=== PATIENT | female | born 1970 | race Caucasian/White ===

== ENCOUNTER 2017-12-11 16:28 | Inpatient (IN) | payer OTHER ==
[2017-12-11] MEDS: SOD CHLORIDE 0.9% 500 ML IV ×2 (16:52→17:49)
[2017-12-11] MEDS: METOCLOPRAMIDE 10 MG INJ IV (16:52)
[2017-12-11] MEDS: DIPHENHYDRAMINE 50 MG INJ IV (16:53)
[2017-12-11 18:20] LABS: ADD MAN DIFF? NO
[2017-12-11 18:27] LABS: WHITE BLOOD COUNT 9.1 10^3/ul (4.8-10.8)
[2017-12-11 18:27] LABS: BASOPHILS % 0.3 % (0.0-2.0); EOSINOPHILS # 0.2 10^3/ul (0.0-0.5); EOSINOPHILS % 2.3 % (0.0-7.0); HEMATOCRIT 42.8 % (37.0-47.0); HEMOGLOBIN 14.3 g/dl (12.0-16.0); LYMPHOCYTES # 2.3 10^3/ul (0.8-2.9); LYMPHOCYTES % 25.3 % (15.0-51.0); MEAN CORPUSCULAR HEMOGLOBIN 29.5 pg (29.0-33.0); MEAN CORPUSCULAR HGB CONC 33.4 g/dl (32.0-37.0); MEAN CORPUSCULAR VOLUME 88.4 fl (82.0-101.0); MONOCYTE # 0.6 10^3/ul (0.3-0.9); MONOCYTES % 6.8 % (0.0-11.0); NEUTROPHIL # 5.9 10^3/ul (1.6-7.5); NEUTROPHILS % 65.1 % (39.0-77.0); PLATELET COUNT 167 10^3/UL (140-415); RED BLOOD COUNT 4.84 10^6/ul (4.20-5.40); RED CELL DISTRIBUTION WIDTH 13.2 % (11.5-14.5)
[2017-12-11 18:45] LABS: ANION GAP 15 (8-16); BLOOD UREA NITROGEN 21 mg/dl (7-20); CALCIUM 9.1 mg/dl (8.4-10.2); CARBON DIOXIDE 25 mmol/L (21-31); CHLORIDE 105 mmol/L (97-110); CREATININE 0.68 mg/dl (0.44-1.00); GLUCOSE 126 mg/dl (70-220); POTASSIUM 4.1 mmol/L (3.5-5.1); SODIUM 141 mmol/L (135-144)
[2017-12-11 18:57] LABS: TROPONIN-I < 0.012 ng/ml (0.00-0.12)
[2017-12-11 20:24] LABS: ADD UMIC NO; UR ASCORBIC ACID NEGATIVE (NEGATIVE); UR BILIRUBIN (Dip) NEGATIVE (NEGATIVE); UR BLOOD (Dip) NEGATIVE (NEGATIVE); UR CLARITY CLEAR (CLEAR); UR COLOR YELLOW (YELLOW); UR GLUCOSE (Dip) NEGATIVE (NEGATIVE); UR KETONES (Dip) NEGATIVE (NEGATIVE); UR LEUKOCYTE ESTERASE (Dip) NEGATIVE Leu/ul (NEGATIVE); UR NITRITE (Dip) NEGATIVE (NEGATIVE); UR SPECIFIC GRAVITY (Dip) 1.017 (1.003-1.030); UR TOTAL PROTEIN (Dip) NEGATIVE (NEGATIVE); UR UROBILINOGEN (Dip) NEGATIVE (NEGATIVE)
[2017-12-11] MEDS: SUMATRIPTAN 25 MG TAB PO (21:52)
[2017-12-11] MEDS: ASPIRIN 81 MG TAB PO (21:54)
[2017-12-12] MEDS ORDERED: ALBUTEROL/IPRATROPIUM (NEB) 3 ML AMP HHN (05:30)
[2017-12-12] MEDS ORDERED: NACL 0.9% 3 ML SYG IV (05:30)
[2017-12-12] MEDS: ACETAMINOPHEN 325 MG TAB PO (06:41)
[2017-12-12 08:43] LABS: ADD MAN DIFF? NO
[2017-12-12 08:51] LABS: WHITE BLOOD COUNT 7.9 10^3/ul (4.8-10.8)
[2017-12-12 08:51] LABS: BASOPHILS % 0.3 % (0.0-2.0); EOSINOPHILS # 0.2 10^3/ul (0.0-0.5); EOSINOPHILS % 2.2 % (0.0-7.0); HEMATOCRIT 44.2 % (37.0-47.0); HEMOGLOBIN 14.8 g/dl (12.0-16.0); LYMPHOCYTES # 2.5 10^3/ul (0.8-2.9); LYMPHOCYTES % 31.3 % (15.0-51.0); MEAN CORPUSCULAR HEMOGLOBIN 29.4 pg (29.0-33.0); MEAN CORPUSCULAR HGB CONC 33.5 g/dl (32.0-37.0); MEAN CORPUSCULAR VOLUME 87.7 fl (82.0-101.0); MEAN PLATELET VOLUME 11.5 fl (7.4-10.4); MONOCYTE # 0.5 10^3/ul (0.3-0.9); MONOCYTES % 6.6 % (0.0-11.0); NEUTROPHIL # 4.7 10^3/ul (1.6-7.5); NEUTROPHILS % 59.3 % (39.0-77.0); PLATELET COUNT 157 10^3/UL (140-415); RED BLOOD COUNT 5.04 10^6/ul (4.20-5.40); RED CELL DISTRIBUTION WIDTH 13.4 % (11.5-14.5)
[2017-12-12 09:10] LABS: ALANINE AMINOTRANSFERASE 24 IU/L (13-69); ALBUMIN 3.8 g/dl (3.3-4.9); ALBUMIN/GLOBULIN RATIO 1.08; ALKALINE PHOSPHATASE 100 IU/L (42-121); ANION GAP 12 (8-16); ASPARTATE AMINO TRANSFERASE 15 IU/L (15-46); BILIRUBIN,INDIRECT 0.3 mg/dl (0-1.1); BILIRUBIN,TOTAL 0.3 mg/dl (0.2-1.3); BLOOD UREA NITROGEN 19 mg/dl (7-20); CALCIUM 9.3 mg/dl (8.4-10.2); CARBON DIOXIDE 30 mmol/L (21-31); CHLORIDE 105 mmol/L (97-110); CHOL/HDL RATIO 4.2 RATIO; CHOLESTEROL 199 mg/dl (100-200); CREATININE 0.75 mg/dl (0.44-1.00); GLUCOSE 115 mg/dl (70-220); HDL CHOLESTEROL 47 mg/dl (34-88); LDL CHOLESTEROL,CALCULATED 127 mg/dl; MAGNESIUM 2.3 mg/dl (1.7-2.5); POTASSIUM 4.2 mmol/L (3.5-5.1); SODIUM 143 mmol/L (135-144); TOTAL PROTEIN 7.3 g/dl (6.1-8.1); TRIGLYCERIDES 124 mg/dl (0-149)
[2017-12-12] MEDS: morphine 2 MG INJ IV ×3 (09:27→17:57)
[2017-12-12] MEDS: ASPIRIN 81 MG TAB PO (09:28)
[2017-12-12] MEDS: HEPARIN 5,000 UNIT/0.5 ML VIAL SC ×2 (09:35→20:34)
[2017-12-12 09:38] LABS: THYROID STIMULATING HORMONE 0.896 MIU/L (0.465-4.680)
[2017-12-12 09:49] LABS: HEMOGLOBIN A1C 5.5 % (0-5.9)
[2017-12-12] MEDS ORDERED: INDOMETHACIN 50 MG PO (12:00)
[2017-12-12] MEDS: LORAZEPAM 2 MG INJ IV (16:05)
[2017-12-12 19:58] LABS: AMPHETAMINE/METHAMPHETAMINE Negative (NEGATIVE); BARBITURATES Negative (NEGATIVE); BENZODIAZEPINES Negative (NEGATIVE); CANNABINOIDS Negative (NEGATIVE); COCAINE Negative (NEGATIVE); OPIATES Positive (NEGATIVE)
[2017-12-12] MEDS: INDOMETHACIN 50 MG PO (20:25)
[2017-12-12] MEDS: ATORVASTATIN 20 MG TAB PO (20:26)
[2017-12-13] MEDS: morphine 2 MG INJ IV ×5 (01:25→21:45)
[2017-12-13] MEDS: INDOMETHACIN 50 MG PO ×3 (08:27→20:12)
[2017-12-13] MEDS: ASPIRIN 81 MG TAB PO (08:27)
[2017-12-13] MEDS: HEPARIN 5,000 UNIT/0.5 ML VIAL SC ×2 (08:47→20:28)
[2017-12-13 09:19] LABS: ADD MAN DIFF? NO
[2017-12-13 09:24] LABS: BASOPHILS % 0.4 % (0.0-2.0); EOSINOPHILS # 0.2 10^3/ul (0.0-0.5); EOSINOPHILS % 2.3 % (0.0-7.0); HEMATOCRIT 45.4 % (37.0-47.0); HEMOGLOBIN 14.8 g/dl (12.0-16.0); LYMPHOCYTES # 2.6 10^3/ul (0.8-2.9); LYMPHOCYTES % 35.4 % (15.0-51.0); MEAN CORPUSCULAR HEMOGLOBIN 28.5 pg (29.0-33.0); MEAN CORPUSCULAR HGB CONC 32.6 g/dl (32.0-37.0); MEAN CORPUSCULAR VOLUME 87.5 fl (82.0-101.0); MEAN PLATELET VOLUME 11.7 fl (7.4-10.4); MONOCYTE # 0.5 10^3/ul (0.3-0.9); MONOCYTES % 6.7 % (0.0-11.0); NEUTROPHIL # 4.1 10^3/ul (1.6-7.5); NEUTROPHILS % 54.9 % (39.0-77.0); PLATELET COUNT 167 10^3/UL (140-415); RED BLOOD COUNT 5.19 10^6/ul (4.20-5.40); RED CELL DISTRIBUTION WIDTH 13.3 % (11.5-14.5)
[2017-12-13 09:24] LABS: WHITE BLOOD COUNT 7.5 10^3/ul (4.8-10.8)
[2017-12-13 09:44] LABS: ANION GAP 13 (8-16); BLOOD UREA NITROGEN 22 mg/dl (7-20); CALCIUM 9.3 mg/dl (8.4-10.2); CARBON DIOXIDE 32 mmol/L (21-31); CHLORIDE 103 mmol/L (97-110); CREATININE 0.93 mg/dl (0.44-1.00); GLUCOSE 101 mg/dl (70-220); MAGNESIUM 2.2 mg/dl (1.7-2.5); PHOSPHORUS 4.8 mg/dl (2.5-4.9); POTASSIUM 4.2 mmol/L (3.5-5.1); SODIUM 144 mmol/L (135-144)
[2017-12-13] MEDS: ATORVASTATIN 20 MG TAB PO (20:12)
[2017-12-14] MEDS: ASPIRIN 81 MG TAB PO (08:34)
[2017-12-14] MEDS: INDOMETHACIN 50 MG PO ×3 (08:35→21:31)
[2017-12-14] MEDS: HEPARIN 5,000 UNIT/0.5 ML VIAL SC ×2 (08:39→21:35)
[2017-12-14] MEDS: morphine 2 MG INJ IV ×3 (10:34→21:42)
[2017-12-14] MEDS ORDERED: ACET/BUTAL/CAFF TAB PO ×2 (14:00)
[2017-12-14] MEDS: ATORVASTATIN 20 MG TAB PO (21:31)
[2017-12-15] MEDS: INDOMETHACIN 50 MG PO ×3 (08:25→21:17)
[2017-12-15] MEDS: ASPIRIN 81 MG TAB PO (08:25)
[2017-12-15] MEDS: HEPARIN 5,000 UNIT/0.5 ML VIAL SC ×2 (08:27→21:20)
[2017-12-15] MEDS: morphine 2 MG INJ IV (08:55)
[2017-12-15] MEDS: ACET/BUTAL/CAFF TAB PO ×2 (14:05→18:13)
[2017-12-15] MEDS: ATORVASTATIN 20 MG TAB PO (21:16)
[2017-12-16] MEDS: ACET/BUTAL/CAFF TAB PO ×2 (00:34→08:38)
[2017-12-16] MEDS: ASPIRIN 81 MG TAB PO (08:14)
[2017-12-16] MEDS: INDOMETHACIN 50 MG PO ×2 (08:14→14:00)
[2017-12-16] MEDS: HEPARIN 5,000 UNIT/0.5 ML VIAL SC (08:22)
[2017-12-16] MEDS: ACETAMINOPHEN 325 MG TAB PO (08:25)
[2017-12-16] MEDS: ONDANSETRON 4 MG INJ IV (10:40)
== END 2017-12-16 16:15 | disposition home or self-care (01) | DRG 103 ==
LOC: E/R 16:28 → TEL 22:42
DX: G44.099 Other trigeminal autonomic cephalgias (TAC), not intractable (principal); G45.9 Transient cerebral ischemic attack, unspecified; I10 Essential (primary) hypertension; G44.51 Hemicrania continua; Z90.710 Acquired absence of both cervix and uterus; Z86.73 Personal history of transient ischemic attack (TIA), and cerebral infarction without residual deficits; Z79.82 Long term (current) use of aspirin; Z87.891 Personal history of nicotine dependence
CPT/HCPCS: 70450; 70551; 80048; 80053; 80061; 80307; 81003; 83036; 83735; 84100; 84443; 84484; 85025; 92526; 92610; 93005; 93306; 93880; 96374; 96375; 97110; 97116; 97161; 97530; 99285-25

== ENCOUNTER 2018-05-28 15:34 | Emergency (ER) | payer OTHER ==
[2018-05-28] MEDS: KETOROLAC 30 MG INJ IM (17:11)
[2018-05-28 17:32] LABS: ADD MAN DIFF? NO
[2018-05-28 17:36] LABS: BASOPHILS % 0.5 % (0.0-2.0); EOSINOPHILS # 0.2 10^3/ul (0.0-0.5); EOSINOPHILS % 3.7 % (0.0-7.0); HEMATOCRIT 44.3 % (37.0-47.0); HEMOGLOBIN 14.8 g/dl (12.0-16.0); LYMPHOCYTES # 2.2 10^3/ul (0.8-2.9); LYMPHOCYTES % 35.4 % (15.0-51.0); MEAN CORPUSCULAR HGB CONC 33.4 g/dl (32.0-37.0); MEAN CORPUSCULAR VOLUME 89.7 fl (82.0-101.0); MEAN PLATELET VOLUME 11.5 fl (7.4-10.4); MONOCYTE # 0.6 10^3/ul (0.3-0.9); MONOCYTES % 9.8 % (0.0-11.0); NEUTROPHIL # 3.1 10^3/ul (1.6-7.5); NEUTROPHILS % 50.4 % (39.0-77.0); PLATELET COUNT 151 10^3/UL (140-415); RED BLOOD COUNT 4.94 10^6/ul (4.20-5.40); RED CELL DISTRIBUTION WIDTH 12.4 % (11.5-14.5)
[2018-05-28 17:36] LABS: WHITE BLOOD COUNT 6.2 10^3/ul (4.8-10.8)
[2018-05-28 17:58] LABS: ALANINE AMINOTRANSFERASE 31 IU/L (13-69); ALBUMIN 3.7 g/dl (3.3-4.9); ALBUMIN/GLOBULIN RATIO 1.12; ALKALINE PHOSPHATASE 84 IU/L (42-121); ANION GAP 10 (5-13); ASPARTATE AMINO TRANSFERASE 22 IU/L (15-46); BILIRUBIN,INDIRECT 0.2 mg/dl (0-1.1); BILIRUBIN,TOTAL 0.2 mg/dl (0.2-1.3); BLOOD UREA NITROGEN 17 mg/dl (7-20); CALCIUM 9.7 mg/dl (8.4-10.2); CARBON DIOXIDE 29 mmol/L (21-31); CHLORIDE 101 mmol/L (97-110); CREATININE 0.78 mg/dl (0.44-1.00); Estimated GFR > 60 mL/min (>60); GLUCOSE 110 mg/dl (70-220); POTASSIUM 3.9 mmol/L (3.5-5.1); SODIUM 140 mmol/L (135-144)
[2018-05-28] MEDS: SOD CHLORIDE 0.9% 100 ML (19:08)
[2018-05-28] MEDS: IOHEXOL 300MG/ML 150 ML BTL (19:09)
[2018-05-28] MEDS: HYDROCODONE/APAP (5/325) TAB PO (20:41)
== END 2018-05-28 21:15 | disposition home or self-care (01) ==
LOC: FTE 15:34
DX: R51 Headache (principal); H57.12 Ocular pain, left eye; Z79.82 Long term (current) use of aspirin
CPT/HCPCS: 70486; 80053; 81025; 85025; 96372; 99285-25

== ENCOUNTER 2018-06-09 06:33 | Day surgery (SDC) | payer OTHER ==
[2018-06-09] MEDS ORDERED: SOD CHLORIDE 0.9% 500 ML (06:51)
[2018-06-09] MEDS ORDERED: HEPARIN 1000 UNITS/ML 10 ML INJ (06:51)
[2018-06-09] MEDS ORDERED: IODIXANOL LOCM 100 ML BTL (06:51)
[2018-06-09] MEDS ORDERED: LIDOCAINE 2% (MDV) 20 ML INJ (06:51)
[2018-06-09] MEDS ORDERED: VERAPAMIL 5 MG INJ (06:52)
[2018-06-09] MEDS ORDERED: MIDAZOLAM 1 MG/ML 2 ML INJ (06:52)
[2018-06-09] MEDS ORDERED: FENTAnyl 50 MCG/ML VIAL (06:52)
[2018-06-09] MEDS ORDERED: NITROGLYCERIN (IC) 100 MCG/ML INJ (06:52)
[2018-06-09 07:14] LABS: ADD MAN DIFF? NO
[2018-06-09 07:16] LABS: BASOPHILS % 0.6 % (0.0-2.0); EOSINOPHILS # 0.3 10^3/ul (0.0-0.5); EOSINOPHILS % 4.1 % (0.0-7.0); HEMATOCRIT 41.9 % (37.0-47.0); HEMOGLOBIN 13.9 g/dl (12.0-16.0); LYMPHOCYTES # 2.3 10^3/ul (0.8-2.9); LYMPHOCYTES % 36.6 % (15.0-51.0); MEAN CORPUSCULAR HEMOGLOBIN 29.6 pg (29.0-33.0); MEAN CORPUSCULAR HGB CONC 33.2 g/dl (32.0-37.0); MEAN CORPUSCULAR VOLUME 89.3 fl (82.0-101.0); MEAN PLATELET VOLUME 11.6 fl (7.4-10.4); MONOCYTE # 0.5 10^3/ul (0.3-0.9); MONOCYTES % 7.6 % (0.0-11.0); NEUTROPHIL # 3.2 10^3/ul (1.6-7.5); NEUTROPHILS % 50.8 % (39.0-77.0); PLATELET COUNT 143 10^3/UL (140-415); RED BLOOD COUNT 4.69 10^6/ul (4.20-5.40); RED CELL DISTRIBUTION WIDTH 12.8 % (11.5-14.5)
[2018-06-09 07:16] LABS: WHITE BLOOD COUNT 6.3 10^3/ul (4.8-10.8)
[2018-06-09 07:36] LABS: INR 0.95; PROTIME 12.8 Sec (11.9-14.9)
[2018-06-09 07:40] LABS: ANION GAP 10 (5-13); BLOOD UREA NITROGEN 16 mg/dl (7-20); CALCIUM 9.3 mg/dl (8.4-10.2); CARBON DIOXIDE 27 mmol/L (21-31); CHLORIDE 104 mmol/L (97-110); CREATININE 0.74 mg/dl (0.44-1.00); Estimated GFR > 60 mL/min (>60); GLUCOSE 108 mg/dl (70-220); POTASSIUM 3.8 mmol/L (3.5-5.1); SODIUM 141 mmol/L (135-144)
[2018-06-09] MEDS ORDERED: SOD CHLORIDE 0.9% 1,000 ML IV (07:44)
== END 2018-06-09 10:55 | disposition home or self-care (01) ==
LOC: SDS 06:33
DX: R07.9 Chest pain, unspecified (principal); I10 Essential (primary) hypertension; Z79.82 Long term (current) use of aspirin
CPT/HCPCS: 80048; 85025; 85610; 93005; 93458

== ENCOUNTER 2018-08-05 19:16 | Emergency (ER) | payer OTHER ==
[2018-08-05 20:21] LABS: ADD MAN DIFF? NO
[2018-08-05] MEDS: ACETAMINOPHEN 325 MG TAB PO (20:23)
[2018-08-05] MEDS: ONDANSETRON 4 MG INJ IV (20:23)
[2018-08-05] MEDS: HYDROmorphONE 1 MG/ML SYG IV (20:23)
[2018-08-05] MEDS: SODIUM CHLORIDE 0.9% 1L BAG IV* (20:23)
[2018-08-05 20:27] LABS: WHITE BLOOD COUNT 9.9 10^3/ul (4.8-10.8)
[2018-08-05 20:27] LABS: BASOPHILS % 0.3 % (0.0-2.0); EOSINOPHILS % 0.3 % (0.0-7.0); HEMOGLOBIN 14.8 g/dl (12.0-16.0); LYMPHOCYTES # 0.7 10^3/ul (0.8-2.9); LYMPHOCYTES % 7.3 % (15.0-51.0); MEAN CORPUSCULAR HEMOGLOBIN 29.8 pg (29.0-33.0); MEAN CORPUSCULAR HGB CONC 34.4 g/dl (32.0-37.0); MEAN CORPUSCULAR VOLUME 86.7 fl (82.0-101.0); MEAN PLATELET VOLUME 12.2 fl (7.4-10.4); MONOCYTE # 0.6 10^3/ul (0.3-0.9); NEUTROPHIL # 8.5 10^3/ul (1.6-7.5); NEUTROPHILS % 85.8 % (39.0-77.0); PLATELET COUNT 119 10^3/UL (140-415); RED BLOOD COUNT 4.96 10^6/ul (4.20-5.40); RED CELL DISTRIBUTION WIDTH 12.7 % (11.5-14.5)
[2018-08-05] MEDS: CEFEPIME 2GM/50 ML (PMX) 50 ML IVPB (20:29)
[2018-08-05 20:38] LABS: ADD UMIC YES; UR ASCORBIC ACID NEGATIVE (NEGATIVE); UR BILIRUBIN (Dip) NEGATIVE (NEGATIVE); UR BLOOD (Dip) 1+ mg/dL (NEGATIVE); UR CLARITY CLEAR (CLEAR); UR COLOR YELLOW (YELLOW); UR GLUCOSE (Dip) NEGATIVE (NEGATIVE); UR KETONES (Dip) NEGATIVE (NEGATIVE); UR LEUKOCYTE ESTERASE (Dip) NEGATIVE Leu/ul (NEGATIVE); UR NITRITE (Dip) NEGATIVE (NEGATIVE); UR RBC 4 /HPF (0-5); UR SPECIFIC GRAVITY (Dip) 1.014 (1.003-1.030); UR TOTAL PROTEIN (Dip) NEGATIVE (NEGATIVE); UR UROBILINOGEN (Dip) NEGATIVE (NEGATIVE); UR WBC 0 /HPF (0-5)
[2018-08-05] MEDS: VANCOMYCIN 1 GM (PMX) 250 ML IVPB (20:49)
[2018-08-05 21:00] LABS: ALANINE AMINOTRANSFERASE 39 IU/L (13-69); ALBUMIN 4.6 g/dl (3.3-4.9); ALBUMIN/GLOBULIN RATIO 1.27; ALKALINE PHOSPHATASE 103 IU/L (42-121); ANION GAP 11 (5-13); ASPARTATE AMINO TRANSFERASE 30 IU/L (15-46); BILIRUBIN,INDIRECT 0.4 mg/dl (0-1.1); BILIRUBIN,TOTAL 0.4 mg/dl (0.2-1.3); BLOOD UREA NITROGEN 13 mg/dl (7-20); CARBON DIOXIDE 24 mmol/L (21-31); CHLORIDE 104 mmol/L (97-110); CREATININE 0.88 mg/dl (0.44-1.00); Estimated GFR > 60 mL/min (>60); GLUCOSE 130 mg/dl (70-220); POTASSIUM 3.8 mmol/L (3.5-5.1); SODIUM 139 mmol/L (135-144); TOTAL PROTEIN 8.2 g/dl (6.1-8.1)
[2018-08-05] MEDS: SOD CHLORIDE 0.9% 100 ML (21:23)
[2018-08-05] MEDS: IOHEXOL 300MG/ML 150 ML BTL (21:24)
[2018-08-05] MEDS: KETOROLAC 30 MG INJ IV (23:17)
[2018-08-05] MEDS: SOD CHLORIDE 0.9% 1,000 ML IV (23:42)
[2018-08-06 00:49] LABS: LACTIC ACID 0.7 mmol/L (0.5-2.0)
== END 2018-08-06 00:45 | disposition home or self-care (01) ==
LOC: E/R 08-06 00:45
DX: R50.9 Fever, unspecified (principal); Z79.82 Long term (current) use of aspirin
CPT/HCPCS: 36415; 71045; 74177; 76705; 80053; 81001; 81025; 83605; 85025; 87040; 87086; 87400; 96365; 96366; 96367; 96375; 99285-25

== ENCOUNTER 2018-12-02 16:20 | Inpatient (IN) | payer OTHER ==
[2018-12-02 19:48] LABS: ADD MAN DIFF? NO; BASOPHILS % 0.4 % (0.0-2.0); EOSINOPHILS # 0.3 10^3/ul (0.0-0.5); EOSINOPHILS % 4.2 % (0.0-7.0); HEMATOCRIT 45.9 % (37.0-47.0); HEMOGLOBIN 15.3 g/dl (12.0-16.0); LYMPHOCYTES # 2.9 10^3/ul (0.8-2.9); LYMPHOCYTES % 37.4 % (15.0-51.0); MEAN CORPUSCULAR HEMOGLOBIN 29.3 pg (29.0-33.0); MEAN CORPUSCULAR HGB CONC 33.3 g/dl (32.0-37.0); MEAN CORPUSCULAR VOLUME 87.8 fl (82.0-101.0); MEAN PLATELET VOLUME 12.1 fl (7.4-10.4); MONOCYTE # 0.6 10^3/ul (0.3-0.9); NEUTROPHIL # 3.9 10^3/ul (1.6-7.5); NEUTROPHILS % 49.7 % (39.0-77.0); PLATELET COUNT 134 10^3/UL (140-415); RED BLOOD COUNT 5.23 10^6/ul (4.20-5.40); RED CELL DISTRIBUTION WIDTH 13.1 % (11.5-14.5)
[2018-12-02 19:48] LABS: WHITE BLOOD COUNT 7.9 10^3/ul (4.8-10.8)
[2018-12-02 20:07] LABS: INR 0.93; PARTIAL THROMBOPLASTIN TIME 26.9 Sec (23.0-35.0); PROTIME 12.6 Sec (11.9-14.9)
[2018-12-02 20:10] LABS: ANION GAP 9 (5-13); BLOOD UREA NITROGEN 16 mg/dl (7-20); CALCIUM 10.1 mg/dl (8.4-10.2); CARBON DIOXIDE 27 mmol/L (21-31); CHLORIDE 107 mmol/L (97-110); CHOLESTEROL 211 mg/dl (100-200); Estimated GFR > 60 mL/min (>60); GLUCOSE 110 mg/dl (70-220); HDL CHOLESTEROL 35 mg/dl (34-88); LDL CHOLESTEROL,CALCULATED 118 mg/dl; SODIUM 143 mmol/L (135-144); TRIGLYCERIDES 289 mg/dl (0-149)
[2018-12-02 20:21] LABS: TROPONIN-I < 0.012 ng/ml (0.000-0.120)
[2018-12-02 20:22] LABS: ADD UMIC YES; UR ASCORBIC ACID NEGATIVE (NEGATIVE); UR BACTERIA FEW /HPF (NONE SEEN); UR BILIRUBIN (Dip) NEGATIVE (NEGATIVE); UR BLOOD (Dip) 1+ mg/dL (NEGATIVE); UR CLARITY SLIGHTLY CLOUDY (CLEAR); UR COLOR YELLOW (YELLOW); UR GLUCOSE (Dip) NEGATIVE (NEGATIVE); UR KETONES (Dip) NEGATIVE (NEGATIVE); UR LEUKOCYTE ESTERASE (Dip) 1+ Leu/ul (NEGATIVE); UR NITRITE (Dip) NEGATIVE (NEGATIVE); UR RBC 3 /HPF (0-5); UR SPECIFIC GRAVITY (Dip) 1.016 (1.003-1.030); UR SQUAMOUS EPITHELIAL CELL FEW /HPF (FEW); UR TOTAL PROTEIN (Dip) NEGATIVE (NEGATIVE); UR UROBILINOGEN (Dip) NEGATIVE (NEGATIVE); UR WBC 19 /HPF (0-5)
[2018-12-02 21:05] LABS: AMPHETAMINE/METHAMPHETAMINE NEGATIVE (NEGATIVE); BARBITURATES NEGATIVE (NEGATIVE); BENZODIAZEPINES NEGATIVE (NEGATIVE); CANNABINOIDS NEGATIVE (NEGATIVE); COCAINE NEGATIVE (NEGATIVE)
[2018-12-02 21:06] LABS: OPIATES NEGATIVE (NEGATIVE)
[2018-12-02] MEDS: ONDANSETRON 4 MG INJ IV (21:10)
[2018-12-02] MEDS: morphine 4 MG/ML VIAL IV (21:10)
[2018-12-02] MEDS ORDERED: ONDANSETRON 4 MG INJ IV ×2 (21:30→22:00)
[2018-12-02] MEDS ORDERED: ASPIRIN 325 MG TAB PO (21:30)
[2018-12-02] MEDS: ASPIRIN 300 MG SUPP PR (21:37)
[2018-12-02] MEDS ORDERED: BISACODYL (EC) 5 MG TAB PO (22:00)
[2018-12-02] MEDS ORDERED: DOCUSATE SODIUM 100 MG CAP PO (22:00)
[2018-12-02] MEDS ORDERED: NACL 0.9% 3 ML SYG IV (22:00)
[2018-12-02] MEDS ORDERED: hydrALAzine 20 MG INJ IV (22:00)
[2018-12-02] MEDS: ENALAPRIL 20 MG TAB PO (23:00)
[2018-12-02] MEDS: CEFTRIAXONE 1 GM/50 ML (PMX) 50 ML IVPB (23:07)
[2018-12-03] MEDS: ACETAMINOPHEN 325 MG TAB PO ×3 (02:32→20:43)
[2018-12-03 06:21] LABS: ADD MAN DIFF? NO
[2018-12-03 06:28] LABS: WHITE BLOOD COUNT 6.6 10^3/ul (4.8-10.8)
[2018-12-03 06:28] LABS: BASOPHILS % 0.5 % (0.0-2.0); EOSINOPHILS # 0.3 10^3/ul (0.0-0.5); EOSINOPHILS % 3.9 % (0.0-7.0); HEMATOCRIT 41.5 % (37.0-47.0); LYMPHOCYTES # 2.4 10^3/ul (0.8-2.9); LYMPHOCYTES % 36.2 % (15.0-51.0); MEAN CORPUSCULAR HEMOGLOBIN 29.4 pg (29.0-33.0); MEAN CORPUSCULAR HGB CONC 33.7 g/dl (32.0-37.0); MEAN PLATELET VOLUME 12.2 fl (7.4-10.4); MONOCYTE # 0.6 10^3/ul (0.3-0.9); MONOCYTES % 8.6 % (0.0-11.0); NEUTROPHIL # 3.4 10^3/ul (1.6-7.5); NEUTROPHILS % 50.6 % (39.0-77.0); PLATELET COUNT 120 10^3/UL (140-415); RED BLOOD COUNT 4.77 10^6/ul (4.20-5.40); RED CELL DISTRIBUTION WIDTH 13.2 % (11.5-14.5)
[2018-12-03 06:52] LABS: ALANINE AMINOTRANSFERASE 53 IU/L (13-69); ALBUMIN 3.7 g/dl (3.3-4.9); ALBUMIN/GLOBULIN RATIO 1.08; ALKALINE PHOSPHATASE 76 IU/L (42-121); ANION GAP 9 (5-13); ASPARTATE AMINO TRANSFERASE 75 IU/L (15-46); BILIRUBIN,INDIRECT 0.3 mg/dl (0-1.1); BILIRUBIN,TOTAL 0.3 mg/dl (0.2-1.3); BLOOD UREA NITROGEN 15 mg/dl (7-20); CARBON DIOXIDE 24 mmol/L (21-31); CHLORIDE 108 mmol/L (97-110); CREATININE 0.71 mg/dl (0.44-1.00); Estimated GFR > 60 mL/min (>60); GLUCOSE 108 mg/dl (70-220); POTASSIUM 4.2 mmol/L (3.5-5.1); SODIUM 141 mmol/L (135-144); TOTAL PROTEIN 7.1 g/dl (6.1-8.1)
[2018-12-03 08:05] LABS: HEMOGLOBIN A1C 5.8 % (0-5.9)
[2018-12-03] MEDS: GABAPENTIN 300 MG CAP PO (08:31)
[2018-12-03] MEDS: HYDROCHLOROTHIAZIDE 25 MG TAB PO (08:31)
[2018-12-03] MEDS: METOPROLOL 100 MG TAB PO ×3 (08:31→20:27)
[2018-12-03] MEDS: ASPIRIN (EC) 81 MG TAB PO (08:31)
[2018-12-03] MEDS: ENALAPRIL 20 MG TAB PO ×2 (09:30→20:27)
[2018-12-03] MEDS: DILTIAZEM 90 MG TAB PO ×3 (09:30→20:27)
[2018-12-03] MEDS ORDERED: LORAZEPAM 2 MG INJ IV (13:00)
[2018-12-03 13:55] LABS: MAGNESIUM 2.1 mg/dl (1.7-2.5)
[2018-12-03 13:55] LABS: PHOSPHORUS 4.6 mg/dl (2.5-4.9)
[2018-12-03] MEDS: LORAZEPAM 2 MG INJ IV (15:57)
[2018-12-03] MEDS: CEFTRIAXONE 1 GM/50 ML (PMX) 50 ML IVPB (22:17)
[2018-12-04] MEDS: HYDROCHLOROTHIAZIDE 25 MG TAB PO (08:38)
[2018-12-04] MEDS: METOPROLOL 100 MG TAB PO ×3 (08:38→20:20)
[2018-12-04] MEDS: DILTIAZEM 90 MG TAB PO ×3 (08:38→20:20)
[2018-12-04] MEDS: ASPIRIN (EC) 81 MG TAB PO (08:38)
[2018-12-04] MEDS: GABAPENTIN 300 MG CAP PO (08:39)
[2018-12-04] MEDS: ENALAPRIL 20 MG TAB PO ×2 (08:39→20:19)
[2018-12-04] MEDS: ACETAMINOPHEN 325 MG TAB PO (12:42)
[2018-12-04] MEDS: SOD CHLORIDE 0.9% 1,000 ML IV (12:42)
[2018-12-04] MEDS: KETOROLAC 30 MG INJ IV (16:44)
[2018-12-04 16:53] LABS: ERYTHROCYTE SEDIMENTATION RATE 6 mm/Hr (0-20)
[2018-12-04] MEDS: NAPROXEN 250 MG TAB PO (20:19)
[2018-12-04] MEDS: CEFTRIAXONE 1 GM/50 ML (PMX) 50 ML IVPB (22:27)
[2018-12-05] MEDS: ACETAMINOPHEN 325 MG TAB PO ×2 (01:03→10:23)
[2018-12-05] MEDS: PANTOPRAZOLE (EC) 40 MG TAB PO (06:15)
[2018-12-05] MEDS: GABAPENTIN 300 MG CAP PO (08:36)
[2018-12-05] MEDS: NAPROXEN 250 MG TAB PO ×2 (08:36→22:24)
[2018-12-05] MEDS: ASPIRIN (EC) 81 MG TAB PO (08:36)
[2018-12-05] MEDS: HYDROCHLOROTHIAZIDE 25 MG TAB PO (08:37)
[2018-12-05] MEDS: METOPROLOL 100 MG TAB PO ×3 (08:38→22:25)
[2018-12-05] MEDS: ENALAPRIL 20 MG TAB PO ×3 (08:39→22:24)
[2018-12-05] MEDS: DILTIAZEM 90 MG TAB PO ×3 (08:39→22:24)
[2018-12-05] MEDS: DEXTROSE 5%-0.45% NACL 1,000 ML IV ×2 (10:49→22:32)
[2018-12-05] MEDS: CEFTRIAXONE 1 GM/50 ML (PMX) 50 ML IVPB (22:23)
[2018-12-06] MEDS: PANTOPRAZOLE (EC) 40 MG TAB PO (05:03)
[2018-12-06] MEDS: DEXTROSE 5%-0.45% NACL 1,000 ML IV (06:30)
[2018-12-06] MEDS: METOPROLOL 100 MG TAB PO ×3 (08:28→21:09)
[2018-12-06] MEDS: ASPIRIN (EC) 81 MG TAB PO (08:28)
[2018-12-06] MEDS: ENALAPRIL 20 MG TAB PO ×2 (08:29→21:08)
[2018-12-06] MEDS: HYDROCHLOROTHIAZIDE 25 MG TAB PO (08:29)
[2018-12-06] MEDS: GABAPENTIN 300 MG CAP PO (08:29)
[2018-12-06] MEDS: NAPROXEN 250 MG TAB PO ×2 (08:29→21:07)
[2018-12-06] MEDS: DILTIAZEM 90 MG TAB PO ×3 (08:29→21:09)
[2018-12-06] MEDS: IOHEXOL 100 ML (10:45)
[2018-12-06] MEDS: SOD CHLORIDE 0.9% 100 ML (10:45)
[2018-12-06] MEDS: IOHEXOL 350MG/ML 50 ML BTL (10:46)
[2018-12-06] MEDS: ACETAMINOPHEN 325 MG TAB PO (15:41)
[2018-12-06] MEDS: CEFTRIAXONE 1 GM/50 ML (PMX) 50 ML IVPB (21:35)
[2018-12-07] MEDS: PANTOPRAZOLE (EC) 40 MG TAB PO (05:42)
[2018-12-07] MEDS: METOPROLOL 100 MG TAB PO ×3 (07:50→21:34)
[2018-12-07] MEDS: DILTIAZEM 90 MG TAB PO ×3 (07:50→21:33)
[2018-12-07] MEDS: ASPIRIN (EC) 81 MG TAB PO (08:38)
[2018-12-07] MEDS: NAPROXEN 250 MG TAB PO ×2 (08:38→21:33)
[2018-12-07] MEDS: GABAPENTIN 300 MG CAP PO (08:38)
[2018-12-07] MEDS: ENALAPRIL 20 MG TAB PO ×2 (08:39→21:33)
[2018-12-07] MEDS: HYDROCHLOROTHIAZIDE 25 MG TAB PO (08:39)
[2018-12-07] MEDS: ACETAMINOPHEN 325 MG TAB PO (11:39)
[2018-12-07] MEDS: KETOROLAC 30 MG INJ IV (15:59)
[2018-12-07] MEDS: CEFTRIAXONE 1 GM/50 ML (PMX) 50 ML IVPB (21:33)
[2018-12-08] MEDS: PANTOPRAZOLE (EC) 40 MG TAB PO (05:56)
[2018-12-08 06:48] LABS: ADD MAN DIFF? NO
[2018-12-08 06:54] LABS: BASOPHILS % 0.4 % (0.0-2.0); EOSINOPHILS # 0.4 10^3/ul (0.0-0.5); EOSINOPHILS % 6.1 % (0.0-7.0); HEMATOCRIT 43.2 % (37.0-47.0); HEMOGLOBIN 14.6 g/dl (12.0-16.0); LYMPHOCYTES # 2.5 10^3/ul (0.8-2.9); LYMPHOCYTES % 35.6 % (15.0-51.0); MEAN CORPUSCULAR HEMOGLOBIN 29.6 pg (29.0-33.0); MEAN CORPUSCULAR HGB CONC 33.8 g/dl (32.0-37.0); MEAN CORPUSCULAR VOLUME 87.4 fl (82.0-101.0); MEAN PLATELET VOLUME 12.2 fl (7.4-10.4); MONOCYTE # 0.5 10^3/ul (0.3-0.9); MONOCYTES % 7.2 % (0.0-11.0); NEUTROPHIL # 3.6 10^3/ul (1.6-7.5); NEUTROPHILS % 50.6 % (39.0-77.0); PLATELET COUNT 135 10^3/UL (140-415); RED BLOOD COUNT 4.94 10^6/ul (4.20-5.40); RED CELL DISTRIBUTION WIDTH 12.8 % (11.5-14.5)
[2018-12-08 06:54] LABS: WHITE BLOOD COUNT 7.1 10^3/ul (4.8-10.8)
[2018-12-08 07:21] LABS: ALBUMIN 3.7 g/dl (3.3-4.9); ANION GAP 9 (5-13); BLOOD UREA NITROGEN 22 mg/dl (7-20); CALCIUM 9.5 mg/dl (8.4-10.2); CARBON DIOXIDE 29 mmol/L (21-31); CHLORIDE 103 mmol/L (97-110); CREATININE 0.86 mg/dl (0.44-1.00); GLUCOSE 102 mg/dl (70-220); MAGNESIUM 2.1 mg/dl (1.7-2.5); PHOSPHORUS 4.8 mg/dl (2.5-4.9); POTASSIUM 3.8 mmol/L (3.5-5.1); SODIUM 141 mmol/L (135-144)
[2018-12-08] MEDS: HYDROCHLOROTHIAZIDE 25 MG TAB PO (09:08)
[2018-12-08] MEDS: ASPIRIN (EC) 81 MG TAB PO (09:08)
[2018-12-08] MEDS: ENALAPRIL 20 MG TAB PO (09:09)
[2018-12-08] MEDS: METOPROLOL 100 MG TAB PO ×3 (09:09→21:22)
[2018-12-08] MEDS: GABAPENTIN 300 MG CAP PO (09:09)
[2018-12-08] MEDS: NAPROXEN 250 MG TAB PO ×2 (09:09→21:20)
[2018-12-08] MEDS: DILTIAZEM 90 MG TAB PO ×3 (09:09→21:21)
[2018-12-08] MEDS: ENOXAPARIN 40 MG/0.4 ML SYG SC (09:18)
[2018-12-08] MEDS: morphine 2 MG INJ IV (11:22)
[2018-12-09] MEDS: ACETAMINOPHEN 325 MG TAB PO (07:51)
[2018-12-09] MEDS: FAMOTIDINE 20 MG TAB PO (09:08)
[2018-12-09] MEDS: METOPROLOL 100 MG TAB PO ×2 (09:08→20:15)
[2018-12-09] MEDS: HYDROCHLOROTHIAZIDE 25 MG TAB PO (09:08)
[2018-12-09] MEDS: GABAPENTIN 300 MG CAP PO (09:08)
[2018-12-09] MEDS: ASPIRIN (EC) 81 MG TAB PO (09:08)
[2018-12-09] MEDS: ENOXAPARIN 40 MG/0.4 ML SYG SC (09:09)
[2018-12-09] MEDS: DILTIAZEM 90 MG TAB PO ×3 (10:30→20:15)
[2018-12-09] MEDS: ENALAPRIL 20 MG TAB PO (10:30)
[2018-12-09] MEDS: NAPROXEN 500 MG TAB PO ×2 (10:52→20:15)
[2018-12-10] MEDS: ACETAMINOPHEN 325 MG TAB PO (01:30)
[2018-12-10] MEDS: ENALAPRIL 20 MG TAB PO (09:00)
[2018-12-10] MEDS: HYDROCHLOROTHIAZIDE 25 MG TAB PO (09:00)
[2018-12-10] MEDS: DILTIAZEM 90 MG TAB PO ×2 (09:00→13:25)
[2018-12-10] MEDS: METOPROLOL 100 MG TAB PO (09:00)
[2018-12-10] MEDS: FAMOTIDINE 20 MG TAB PO (09:04)
[2018-12-10] MEDS: GABAPENTIN 300 MG CAP PO (09:04)
[2018-12-10] MEDS: ASPIRIN (EC) 81 MG TAB PO (09:04)
[2018-12-10] MEDS: NAPROXEN 500 MG TAB PO (09:05)
[2018-12-10] MEDS: ENOXAPARIN 40 MG/0.4 ML SYG SC (09:09)
== END 2018-12-10 18:29 | disposition home or self-care (01) | DRG 103 ==
LOC: TEL 21:21 → MS1 12-08 22:32 → E/R 16:20
PROVIDERS: Family Medicine
DX: G43.809 Other migraine, not intractable, without status migrainosus (principal); I16.1 Hypertensive emergency; G81.91 Hemiplegia, unspecified affecting right dominant side; E66.9 Obesity, unspecified; Z68.30 Body mass index [BMI] 30.0-30.9, adult; I10 Essential (primary) hypertension; R07.9 Chest pain, unspecified; M79.604 Pain in right leg
CPT/HCPCS: 36415; 70450; 70544; 70548; 70553; 71045; 71275; 72125; 80048; 80053; 80061; 80069; 80307; 81001; 82607; 82962; 83036; 83735; 84100; 84443; 84484; 85025; 85610; 85651; 85730; 93005; 93306; 93970; 96374; 96375; 97110; 97116; 97163; 97165; 97530; 97535; 99285-25